=== PATIENT | female | born 1985 | race Caucasian/White ===

== ENCOUNTER 2022-10-17 10:00 | Emergency (ER) | payer MEDICARE, MEDICAID, SELFPAY ==
[2022-10-17 10:04] VITALS: PULSE 140; RESP 20; TEMP 36.8; O2SAT 98; BMI 27.4
--- NOTE | 2022-10-17 10:12 | ED.GENADUL1 ---
HPI - General Adult General Stated complaint: FACIAL INJURY FALL Time Seen by Provider: 10/17/22 10:12 Source: caregiver Source information: Caregiver Mode of arrival: walk-in Limitations: other Limitations comment: Pt is MR History of Present Illness HPI narrative: Patient brought into the emergency department with a complaint of left cheek swelling. Patient has Down syndrome and is here with caregiver. Caregiver states the patient fell 2 weeks ago and had an abrasion to the left cheek. She was not evaluated at that time. They have been caring for the abrasion that she sustained to her cheek however it started getting swollen and red so they brought her in for evaluation. Patient does not have any loose dentition. Does not have any pain. She does not have difficulty swallowing. She does not have any fever. She has been eating and drinking well. They have not noted any drainage. Related Data Previous Rx's Medication Instructions Recorded amoxicillin 875 mg-potassium 1 tab PO Q12H #20 tabs 10/17/22 clavulanate 125 mg tablet mupirocin 2 % topical ointment 1 applic topical TID #15 grams 10/17/22 Allergies Allergy/AdvReac Type Severity Reaction Status Date / Time No Known Drug Allergies Allergy Verified 10/17/22 10:10 Review of Systems ROS Status of ROS 10 or more systems reviewed and unremarkable except as noted in history and below Exam Narrative Exam Narrative: Nurses notes and vital signs reviewed and patient is not hypoxic. General: Nontoxic, MR and in no apparent distress. Skin: Warm, dry, no pallor noted. No Rash Head: Normocephalic, atraumatic. Neck: Supple, non-tender. Eye: Pupils are equal, round and EOMI. No scleral icterus. Ears, Nose, Mouth, and Throat: TM clear, no posterior oropharynx erythema or nasal mucosal hypertrophy, uvula is mid-line Oral mucosa is moist, No loose dentition. There is no intraoral lacerations appreciated. Left cheek has a medical size abrasion with erythema and a small amount of ecchymosis noted. This is not over the bony areas. This only the soft tissues are affected. The intraoral mucosa and intraoral cavity is not affected. No trismus, no tongue elevation. Consistent with an infected wound. Cardiovascular: Regular Rate and Rhythm without murmur, gallop or rub. Respiratory: No accessory muscle use or respiratory distress. Lungs are clear to auscultation, no wheezing, rales or rhonchi Chest Wall: no tenderness Back: No midline thoracic or lumbar vertebral tenderness. No CVA tenderness Musculoskeletal: normal ROM, no calf or popliteal tenderness, no lower extremity edema/swelling GI: Abdomen is soft, non-distended. Normal bowel sounds. No masses appreciated. No tenderness to palpation. No rebound, guarding, or rigidity noted. Neurological: A&O x3. No cranial nerve dysfunction observed. Moves all extremities. Constitutional Vital Signs - 24 hr 10/17/22 10:04 Temperature 98.3 F Pulse Rate [Monitor] 140 H Respiratory Rate 20 Pulse Oximetry 98 Oxygen Delivery Method Room Air Course Vital Signs Vital signs: Vital Signs Temperature 98.3 F 10/17/22 10:04 Pulse Rate 140 H 10/17/22 10:04 Respiratory Rate 20 10/17/22 10:04 Pulse Oximetry 98 10/17/22 10:04 Oxygen Delivery Method Room Air 10/17/22 10:04 Temperature 98.3 F 10/17/22 10:04 Pulse Rate 140 H 10/17/22 10:04 Respiratory Rate 20 10/17/22 10:04 Pulse Oximetry 98 10/17/22 10:04 Oxygen Delivery Method Room Air 10/17/22 10:04 Medical Decision Making MDM Narrative Medical decision making narrative: Patient is aggressive and feisty. However she did cooperate during the exam. She states still Decided to Her Was Going to Give Her Medication for Her Wound. Stated Not to Let the Patient Now Will Requiring to Do an Injection. She Will Be Given an Injection of Rocephin IM, We Discussed compresses to the area, mupirocin, advised that he might drain. The patient is not a candidate for incision and drainage. At this time. They will continue to monitor it. Will follow up with primary care doctor and return to the emergency department if it worsens.Patient given a prescription for Augmentin and mupirocin. At this time the patient is without objective evidence of an acute process requiring hospitalization or inpatient management. The patient has remained hemodynamically stable. No additional indication for emergent studies at this time. I answered all questions. Discussed discharge instructions including standard anticipatory guidance and what should prompt a return to the emergency department, including if they get worse are not getting better or develops any new or concerning symptoms. I've given them specific time frame in which to follow-up, and who to follow-up with. The patient demonstrates understanding. Patient is nontoxic and stable for discharge with outpatient follow-up. This note was created with the assistance of a speech recognition program. Although the intention is to generate documents that actually reflects the content of the visit, no guarantees can be provided that every mistake has been identified and corrected by editing. Discharge Plan Discharge Clinical Impression: Cellulitis and abscess of face, Abrasion of face Patient Disposition: Home, Self-Care Time of Disposition Decision: 10:25 Condition: Good Mode of Transportation: Private Vehicle Prescriptions / Home Meds: New amoxicillin-pot clavulanate 875-125 mg tablet 1 tab PO Q12H Qty: 20 0RF mupirocin 2 % ointment 1 applic topical TID Qty: 15 0RF Instructions: Cellulitis (ED) Additional Instructions: Warm compresses to the face as discussed. Take the medication as discussed. Follow up with the primary care doctor in the morning for reevaluation. Return to the emergency department and plans conceerns as discussed. Stand Alone Forms: Portal Instructions Referrals: Anca VALE [Primary Care Provider] - 1 week
== END 2022-10-17 11:27 | disposition home or self-care (01) ==
PROVIDERS: Emergency Provider Emergency Medicine; PCP Family Medicine
DX: S00.81XA Abrasion of other part of head, initial encounter (principal); L03.211 Cellulitis of face; W19.XXXA Unspecified fall, initial encounter; Q90.9 Down syndrome, unspecified
CPT/HCPCS: 96374; 99284

== ENCOUNTER 2023-08-21 12:16 | Emergency (ER) | payer MEDICARE, MEDICAID, SELFPAY ==
[2023-08-21 12:25] VITALS: BP 127/96; PULSE 80; O2SAT 98
[2023-08-21] MEDS: FLUORESCEIN SODIUM 1 MG STRIP OP (12:43)
--- NOTE | 2023-08-21 13:06 | ED_ITS ---
HPI - Eye Problem General Chief complaint: Eye Problems Stated complaint: EYE PROBLEM, RIGHT Time Seen by Provider: 08/21/23 12:23 Source: other Source comment: EMS Mode of arrival: ambulance History of Present Illness HPI Narrative: 37-year-old female presents from [facility] for eye problem. She has Down syndrome and is unable to provide any history. All of the history is obtained from caregiver. He reports that over the past 1 or 2 days she seemed to have some redness in her right eye and it looked a bit cloudy. This is not normal for her. There is no history of any trauma or foreign body. There has been no purulent drainage. Related Data Previous Rx's ?Medication ?Instructions ?Recorded amoxicillin 875 mg-potassium 1 tab PO Q12H #20 tabs 10/17/22 clavulanate 125 mg tablet mupirocin 2 % topical ointment 1 applic topical TID #15 grams 10/17/22 erythromycin 5 mg/gram (0.5 %) eye 1 applic ophthalmic (eye) TID #3.5 08/21/23 ointment grams Allergies Allergy/AdvReac Type Severity Reaction Status Date / Time No Known Drug Allergies Allergy Verified 10/17/22 10:10 Review of Systems ROS Narrative Unobtainable, Down syndrome Exam Narrative Exam Narrative: Nurses note and vital signs reviewed and patient is not hypoxic. General: The patient appears well and in no apparent distress. Patient is resting comfortably on cart. Skin: Warm, dry, no pallor noted. There is no rash noted. Head: Normocephalic, atraumatic Eye: Left eye is mildly more injected than the right. There is no periorbital swelling or erythema. Extraocular movements appear to be intact. There is cloudiness to the right eye centered on the cornea. Staining and Chavez lamp examination of the left eye shows no abnormalities but there is round uptake at the right cornea. Ears, Nose, Mouth, and Throat: oral mucosa is moist. Nares patent. Cardiovascular: Regular Rate and Rhythm Respiratory: Patient is in no distress, no accessory muscle use, lungs are clear to auscultation, no wheezing, rales or rhonchi Back: non-tender GI: Soft and nontender Musculoskeletal: The patient has no evidence of calf tenderness, no pitting edema, symmetrical pulses noted bilaterally Neurological: Awake and looking around the room Psychiatric: Moderately cooperative Constitutional Vital Signs, click to edit/add: Last Vital Signs Pulse 80 08/21/23 12:25 Resp 18 08/21/23 12:25 BP 127/96 H 08/21/23 12:25 Pulse Ox 98 08/21/23 12:25 O2 Del Method Room Air 08/21/23 12:25 Course Vital Signs Vital signs: Vital Signs Pulse Rate 80 08/21/23 12:25 Respiratory Rate 18 08/21/23 12:25 Blood Pressure 127/96 H 08/21/23 12:25 Pulse Oximetry 98 08/21/23 12:25 Oxygen Delivery Method Room Air 08/21/23 12:25 Pulse Rate 80 08/21/23 12:25 Respiratory Rate 18 08/21/23 12:25 Blood Pressure 127/96 H 08/21/23 12:25 Pulse Oximetry 98 08/21/23 12:25 Oxygen Delivery Method Room Air 08/21/23 12:25 MDM - Eye Problem MDM Narrative Medical decision making narrative: My concern is for corneal ulcer and she is being referred to ophthalmology for appropriate prompt follow-up. Differential Diagnosis Differential diagnosis: Likely corneal abrasion, conjunctivitis, acute iritis and corneal ulcer Discharge Plan Discharge Stand Alone Forms: Portal Instructions Chief Complaint: Eye Problems Clinical Impression: Corneal ulcer Patient Disposition: Home, Self-Care Time of Disposition Decision: 13:04 Condition: Good Mode of Transportation: Private Vehicle Prescriptions / Home Meds: New erythromycin 5 mg/gram (0.5 %) ointment 1 applic ophthalmic (eye) TID Qty: 3.5 0RF Rx Instructions: Each eye No Action amoxicillin-pot clavulanate 875-125 mg tablet 1 tab PO Q12H Qty: 20 0RF mupirocin 2 % ointment 1 applic topical TID Qty: 15 0RF Print Language: Frisian Instructions: Corneal Ulcer (ED) Additional Instructions: Follow-up with ophthalmology Referrals: Anca VALE [Primary Care Provider] - 1 week
== END 2023-08-21 14:22 | disposition home or self-care (01) ==
PROVIDERS: Emergency Provider Emergency Medicine; PCP Family Medicine
DX: H16.002 Unspecified corneal ulcer, left eye (principal); Q90.9 Down syndrome, unspecified
CPT/HCPCS: 99283

== ENCOUNTER 2025-05-06 10:17 | Emergency (ER) | payer MEDICARE, MEDICAID, SELFPAY ==
--- OUTSIDE RECORDS SUMMARY | 2025-04-24 08:58 | XMS_ITS | Encounter Summary ---
Author Organization [facility] Address [address] [place] [address], [address] [place] [address] Care Team Providers Care Business Coordinator Name Role Phone Kyrie Mason DO Primary Care Provider [phone] Encounter Details DateTypeDepartmentCare Team (Latest Contact Info)Iulkbwlqjnq92/18/2025 8:58 AM EST - 04/24/2025 11:59 PM ESTHospital Encounter [place] [id number] Discharge Disposition: Home or Self Care Social History Tobacco UseTypesPacks/DayYears UsedDateSmoking Tobacco: NeverAlcohol UseStandard Drinks/WeekCommentsNo0 (1 standard drink = 0.6 oz pure alcohol)Comments UnknownSex and Gender InformationValueDate RecordedSex Assigned at BirthNot on fileLegal KshQjtrjn70/12/2013 12:28 AM ESTGender IdentityNot on fileSexual OrientationNot on filedocumented as of this encounter Medications at Time of Discharge MedicationSigDispense QuantityRefillsLast FilledStart DateEnd Date ovpfsucicv-zdehpxbieigzg-ozuolaqx (FIORICET, ESGIC) 50-325-40 MG per tablet Take 1 tablet by mouth every 4 hours as needed for Headaches gabapentin (NEURONTIN) 100 MG capsule Take 100 mg by mouth 3 times daily OLANZapine (ZYPREXA) 10 MG tablet Take 10 mg by mouth nightly traZODone (DESYREL) 100 MG tablet Take 100 mg by mouth nightly levothyroxine (SYNTHROID) 112 MCG tablet Take 112 mcg by mouth Dailydocumented as of this encounter Plan of Treatment Not on file documented as of this encounter Procedures Procedure NamePriorityDate/TimeAssociated DiagnosisCommentsURINALYSIS WITH REFLEX TO QLQIPPJVkmxfuo55/18/2025 8:10 AM EST MICROSCOPIC UWKCBZISCKVrgiewz97/18/2025 8:10 AM EST documented in this encounter Results * (ABNORMAL) Microscopic Urinalysis (04/24/2025 8:10 AM EST)ComponentValueRef RangeTest MethodAnalysis TimePerformed AtPathologist SignatureWBC, UANone0 - 5 /HPF04/24/2025 8:10 AM [facility] LABRBC, UANone0 - 2 /HPF04/24/2025 8:10 AM [facility] LABEpithelial Cells, UA 0 TO 20 - 25 /HPF04/24/2025 8:10 AM [facility] Bacteria, UA1+(A)None04/24/2025 8:10 AM [facility] Specimen (Source)Anatomical Location / LateralityCollection Method / Volume Collection TimeReceived Time04/24/2025 8:10 AM EST04/24/2025 9:06 AM EST Narrative Authorizing ProviderResult TypeResult StatusTammalistair Saul APRNURINE ORDERABLES Final ResultPerforming OrganizationAddressCity/State/ZIP CodePhone Number [facility] [address] [place] [address], [facility] [phone] * Urinalysis with Reflex to Culture (04/24/2025 8:10 AM EST)ComponentValueRef RangeTest MethodAnalysis TimePerformed AtPathologist SignatureColor, UAYellow Vviujh9904/24/2025 8:10 AM [facility] LABTurbidity UAClear Clear04/24/2025 8:10 AM [facility] LABGlucose, UrNEGATIVE NEGATIVE mg/dL04/24/2025 8:10 AM [facility] LABBilirubin, WfdqrCWXQQFSEQAZFOMLO97/18/2025 8:10 AM [facility] Ketones, UrineNEGATIVENEGATIVE mg/dL04/24/2025 8:10 AM [facility] [place] LABSpecific [place], UA1.0151.010 - 1.5262804/24/2025 8:10 AM [facility] LABUrine JxnOTNPJJRSYWIZNEFV87/18/2025 8:10 AM [facility] LABpH, Urine6.05.0 - 9.012 8:10 AM [facility] LABProtein, UANEGATIVENEGATIVE mg/dL04/24/2025 8:10 AM [facility] LABUrobilinogen, UrineNormal0.0 - 1.0 EU/dL 04/24/2025 8:10 AM [facility] LABNitrite, UrineNEGATIVE GMNIKVHP82/18/2025 8:10 AM [facility] LABLeukocyte Esterase, LqjmeCBTFAFYEEIRSRYDP88/18/2025 8:10 AM [facility] LABSpecimen (Source)Anatomical Location / LateralityCollection Method / VolumeCollection TimeReceived Time04/24/2025 8:10 AM EST04/24/2025 9:06 AM EST Narrative Authorizing ProviderResult TypeResult StatusTammalistair Saul APRNURINE ORDERABLES Final ResultPerforming OrganizationAddressCity/State/ZIP CodePhone Number [facility] [address] [phone] documented in this encounter Visit Diagnoses Not on filedocumented in this encounter Care Teams Team MemberRelationshipSpecialtyStart DateEnd Date Kyrie Mason DO [address] [place] [address] PCP - GeneralFamily Medicine08/23/23documented as of this encounter
[2025-05-06 10:19] VITALS: BP 145/80; PULSE 125; TEMP 38; O2SAT 95
[2025-05-06 10:47] LABS: SARS-CoV-2 Ag NEGATIVE (NEGATIVE)
--- NOTE | 2025-05-06 10:49 | XR_ITS ---
The [address] [address] Patient Name: THOMAS THOMAS MRN: [id number] date: 1985 Sex: F Assigned Patient Location: ED.MAIN Current Patient Location: ED.MAIN Accession/Order Number: [id number] Exam Date: 05/06/2025 11:00 Report Date: 05/06/2025 11:21 At the request of: INES CUETO MD Procedure: XR chest 1V PORTABLE AP ERECT CHEST 1048 hours CLINICAL HISTORY: fever COMPARISON: 06/22/2018 There is shallow inspiration. The heart is still mildly prominent though also slightly accentuated. A right-sided arch is possible. Mild interstitial changes are again visualized. There is no developing consolidation. No sizable effusion or pneumothorax is seen. The osseous structures are intact. XR/XR chest 1V IMPRESSION: SHALLOW INSPIRATION. SIMILAR SLIGHT CARDIOMEGALY AND INTERSTITIAL CHANGES. NO DEVELOPING CONSOLIDATION Impression dictated by: Helen Andrade M.D. 05/06/2025 11:21 AM Dictation [facility] Electronically authenticated by: [id number] Y Date: 05/06/2025 11:21
--- OUTSIDE RECORDS SUMMARY | 2025-05-06 10:49 | XMS_ITS | Patient Health Record ---
Author Organization [facility] [employer] Address [address] [place] [address] [place] [address] Care Team Providers Care Fuel Storage Technician Name Role Phone Pierce Bunch Primary Care Provider Ryder Jimenez Unavailable [phone] Reason For Referral No Information Plan Of Treatment No Information Insurance Providers Payer Name Payer Address Payer Phone Subscriber Number Group Number Insured Name Patient Relationship to Insured Coverage Start Date Coverage End Date [facility] [address] [place] [address] [id number] Jose D Richards - patient is the insuredMedicaNorthern [facility] Dpt of Job Fmly [address] [place], [place] [id number], LaurenSelf - patient is the insured
--- OUTSIDE RECORDS SUMMARY | 2025-05-06 10:49 | XMS_ITS | Clinical Summary ---
Author Organization [facility] Address [address] [place] [address], [address] [place] [address] Care Team Providers Care Criminal Records Technician Name Role Phone Kyrie Mason DO Primary Care Provider Allergies No known active allergies Medications MedicationSigDispense QuantityRefillsLast FilledStart DateEnd DateStatus traZODone (DESYREL) 100 MG tablet Take 100 mg by mouth nightlyActive levothyroxine (SYNTHROID) 112 MCG tablet Take 112 mcg by mouth DailyActive xazlctxrcs-fikgaongawjff-jyxsknsi (FIORICET, ESGIC) 50-325-40 MG per tablet Take 1 tablet by mouth every 4 hours as needed for HeadachesActive gabapentin (NEURONTIN) 100 MG capsule Take 100 mg by mouth 3 times dailyActive OLANZapine (ZYPREXA) 10 MG tablet Take 10 mg by mouth nightlyActive Encounters DateTypeDepartmentCare AazrYcghbqnznbe88/18/2025 8:58 AM EST - 04/24/2025 11:59 PM ESTHospital Encounter [place] [id number] Discharge Disposition: Home or Self Care03/05/2025 10:28 AM EDT - 03/05/2025 11:59 PM EDTHospital Encounter [place] [id number] Discharge Disposition: Home or Self Carefrom Last 3 Months Social History Tobacco UseTypesPacks/DayYears UsedDateSmoking Tobacco: NeverAlcohol UseStandard Drinks/WeekCommentsNo0 (1 standard drink = 0.6 oz pure alcohol)Comments UnknownSex and Gender InformationValueDate RecordedSex Assigned at BirthNot on fileLegal FuzOofvhd66/12/2013 12:28 AM ESTGender IdentityNot on fileSexual OrientationNot on file Last Filed Vital Signs Vital SignReadingTime TakenCommentsBlood Prsseqht820/6605 2:24 PM EDT Gnlye41757 2:24 PM NSXIwmwkuraoax92.9 ??C (98.4 ??F)09/19/2016 2:24 PM EDTRespiratory Sliq517909/19/2016 2:24 PM EDTOxygen Trsgspcoyz59%09/19/2016 2:24 PM EDTInhaled Oxygen Concentration--Lludxu74.1 kg (170 lb)05/12/2016 6:11 PM EST Height--Body Mass Index-- Plan of Treatment Health MaintenanceDue DateLast DoneCommentsDepression Ivqqcb3712/02/1998Varicella vaccine (1 of 2 - 13+ 2-dose series)12/03/1999HIV vcrblo3812/02/2001Hepatitis C lwxmud8912/02/2004DTaP/Tdap/Td vaccine (1 - Tdap)2005Hepatitis B vaccine (1 of 3 - 19+ 3-dose series)2005Pap smear12/03/2007Cervical cancer screen 2016HPV (without or with Pap)2016Annual Wellness Visit (Medicare) 04/03/2023Flu vaccine (#1)12/06/2024OVID-19 Vaccine ( - season) 2025Meningococcal (ACWY) vaccineAged Out12/27/2006No longer eligible based on patient's age to complete this topicHPV tjxjzelJmvvevifm52/15/2008, 04/19/2007, 02/15/2007Hepatitis A vaccineAged OutNo longer eligible based on patient's age to complete this topicHib vaccineAged OutNo longer eligible based on patient's age to complete this topicMeningococcal B vaccineAged OutNo longer eligible based on patient's age to complete this topicPneumococcal 0-49 years VaccineAged OutNo longer eligible based on patient's age to complete this topic Polio vaccineAged OutNo longer eligible based on patient's age to complete this topic Procedures Procedure NamePriorityDate/TimeAssociated DiagnosisCommentsMICROSCOPIC VJBNXNFHXJYjlcyhp95/18/2025 8:10 AM EST URINALYSIS WITH REFLEX TO VXRTCGDOdfnfum48/18/2025 8:10 AM EST QLGAAGSDABAifzaao92/29/2025 4:00 PM EDT CULTURE, GNSPWVtqhfpb75/29/2025 4:00 PM EDT from Last 3 Months Results * Urinalysis with Reflex to Culture (04/24/2025 8:10 AM EST)ComponentValueRef RangeTest MethodAnalysis TimePerformed AtPathologist SignatureColor, UAYellow Achlbv6404/24/2025 8:10 AM [facility] LABTurbidity UAClear Clear04/24/2025 8:10 AM [facility] LABGlucose, UrNEGATIVE NEGATIVE mg/dL04/24/2025 8:10 AM [facility] LABBilirubin, BgodoBNDRIWFEKEOMATHI34/18/2025 8:10 AM [facility] Ketones, UrineNEGATIVENEGATIVE mg/dL04/24/2025 8:10 AM [facility] LABSpecific [place], UA1.0151.010 - 1.5325804/24/2025 8:10 AM [facility] LABUrine BjjKRRVZDWZXKEWZJPD68/18/2025 8:10 AM [facility] LABpH, Urine6.05.0 - 9.012 8:10 AM [facility] LABProtein, UANEGATIVENEGATIVE mg/dL04/24/2025 8:10 AM [facility] LABUrobilinogen, UrineNormal0.0 - 1.0 EU/dL 04/24/2025 8:10 AM [facility] LABNitrite, UrineNEGATIVE ZNDWLGRW10/18/2025 8:10 AM [facility] LABLeukocyte Esterase, TugkwDVWJKXTIHYFYTNBN77/18/2025 8:10 AM [facility] LABSpecimen (Source)Anatomical Location / LateralityCollection Method / VolumeCollection TimeReceived Time04/24/2025 8:10 AM EST04/24/2025 9:06 AM EST Narrative Authorizing ProviderResult TypeResult StatusTammy L Dorys APRNURINE ORDERABLES Final ResultPerforming OrganizationAddressCity/State/ZIP CodePhone Number [facility] [address] [place] [address] * (ABNORMAL) Microscopic Urinalysis (04/24/2025 8:10 AM EST)ComponentValueRef RangeTest MethodAnalysis TimePerformed AtPathologist SignatureWBC, UANone0 - 5 /HPF04/24/2025 8:10 AM [facility] LABRBC, UANone0 - 2 /HPF04/24/2025 8:10 AM [facility] LABEpithelial Cells, UA 0 TO 20 - 25 /HPF04/24/2025 8:10 AM [facility] Bacteria, UA1+(A)None04/24/2025 8:10 AM [facility] Specimen (Source)Anatomical Location / LateralityCollection Method / Volume Collection TimeReceived Time04/24/2025 8:10 AM EST04/24/2025 9:06 AM EST Narrative Authorizing ProviderResult TypeResult StatusTammy L Dorys APRNURINE ORDERABLES Final ResultPerforming OrganizationAddressCity/State/ZIP CodePhone Number [facility] [address] [place] [address] * Urinalysis (03/05/2025 4:00 PM EDT)ComponentValueRef RangeTest MethodAnalysis TimePerformed AtPathologist SignatureColor, GPXnyqujGemlkg96/29/2025 4:00 PM [facility] LABTurbidity EYCojaoZjnri93/29/2025 4:00 PM [facility] LABGlucose, UrNEGATIVENEGATIVE mg/dL03/05/2025 4:00 PM [facility] LABBilirubin, UrineNEGATIVENEGATIVE 03/05/2025 4:00 PM [facility] LABKetones, UrineNEGATIVE NEGATIVE mg/dL03/05/2025 4:00 PM [facility] LABSpecific [place], UA1.0101.010 - 1.5108003/05/2025 4:00 PM [facility] LABUrine NocNSRLUYZTYPVRMKVP31/29/2025 4:00 PM [facility] LABpH, Urine7.55.0 - 9.010 4:00 PM [facility] LABProtein, UANEGATIVENEGATIVE mg/dL03/05/2025 4:00 PM [facility] LABUrobilinogen, UrineNormal0.0 - 1.0 EU/dL03/05/2025 4:00 PM [facility] LABNitrite, UrineNEGATIVENEGATIVE 03/05/2025 4:00 PM [facility] LABLeukocyte Esterase, XpankOIKGTRGIGTTJJJOW56/29/2025 4:00 PM [facility] Specimen (Source)Anatomical Location / LateralityCollection Method / Volume Collection TimeReceived Time03/05/2025 4:00 PM EDT1 10:29 AM EDT Narrative Authorizing ProviderResult TypeResult StatusTammalistair Saul APRNURINE ORDERABLES Final ResultPerforming OrganizationAddressCity/State/ZIP CodePhone Number [facility] [address] [phone] * Culture, Urine (03/05/2025 4:00 PM EDT)ComponentValueRef RangeTest Method Analysis TimePerformed AtPathologist SignatureSpecimen Description.VOIDED URINE03/05/2025 4:00 PM EDTMERCY LABORATORIESCultureNO UTWWMO8003/05/2025 4:00 PM EDTMERCY LABORATORIESSpecimen (Source)Anatomical Location / Laterality Collection Method / VolumeCollection TimeReceived TimeUrine tomyhx7203/05/2025 4:00 PM EDT1 10:29 AM EDT Narrative Authorizing ProviderResult TypeResult StatusTammy Beverly TurnerDorys APRNMICROBIOLOGY - GENERAL ORDERABLESFinal ResultPerforming OrganizationAddressCity/State/ZIP Code Phone Number [facility] [address] [place] [address], [facility] [phone] [facility] [address] [place] [address], [facility] [phone] from Last 3 Months Insurance Care Teams Team MemberRelationshipSpecialtyStart DateEnd Date Kyrie Mason DO [address] [place] [address] [facility] - [facility]/23/23
--- OUTSIDE RECORDS SUMMARY | 2025-05-06 10:49 | XMS_ITS | Clinical Summary ---
Author Organization [facility] Address [address] [place] [address] Phone Care Team Providers Care Flatwork Finisher Name Role Phone Unavailable Primary Care Provider Unavailabl e Social History Tobacco UseTypesPacks/DayYears UsedDateSmoking Tobacco: Never Assessed CommentsUnknownSex and Gender InformationValueDate RecordedSex Assigned at Not on fileLegal UshMdtbge21/26/2022 7:03 PM ESTGender IdentityNot on fileSexual OrientationNot on file Plan of Treatment Not on file
--- OUTSIDE RECORDS SUMMARY | 2025-05-06 10:49 | XMS_ITS ---
Author Organization [facility] n Care Team Providers Care Perinatal Technician Name Role Phone Julio C, Itri Unavailable Unavailable nancie whitaker Unavailable Unavailable Allergies and adverse reactions No Known Allergies Care Team Name Role Address Phone Organization Dates Itri Julio C PCP [address] [place], [address], [facility] (Office): : : [facility] 12/18/2020 - 02/24/2021 nancie whitaker [address], [place], [address], [place] (Office): : [facility] 12/18/2020 - 02/24/2021 Immunizations Immunization Status Vaccine Details Vaccine Code CodeSystem Steve e Notes Influenza completed Influenza, split virus, trivalent, injectable, contains preservative expiry: 11/04/2021 Mfg: Seqirus Given 0.5 ml Right Deltoid intramuscularly 141 CVX created date: 02/24/2021 consent date: 02/24/2021 administered date: 02/24/2021 TB 1 Step Mantoux (PPD)completedtuberculin skin test; unspecified formulation lotNumber: [id number] expiry: 05/13/2022 Given 0.1 ml Right Forearm xypgxaslkbsga96IWOumqfpfl date: 12/28/2020 consent date: 12/28/2020 administered date: 12/28/2020TB 1 Step Mantoux (PPD)completedtuberculin skin test; unspecified pdprlysyeqg18MIGajaimfp date: 03/08/2021 administered date: 12/18/20202629HYXV-FEQ-7 (COVID-19)yxohgqdklDYQD-EFH-8 (COVID-19) vaccine, mRNA, spike protein, LNP, preservative free, 100 mcg/0.5mL dose or 50 mcg/0.25mL dose Mfg: Pfizer Step 2 of Multi-step with next step oljbmzir962HRBxahrcsx date: 12/29/2020 administered date: 06/09/20200023VKGR-LZL-0 (COVID-19)jvghgnyqdPYEV-FVF-9 (COVID-19) vaccine, mRNA, spike protein, LNP, preservative free, 100 mcg/0.5mL dose or 50 mcg/0.25mL dose Mfg: Pfizer Step 1 of Multi-step with next step dipbczdw759TASictrnrj date: 12/29/2020 administered date: 05/13/2020OVID-19 [facility] WaioucvicwkfyhukHMNY-VLN-0 (COVID- 19) vaccine, mRNA, spike protein, LNP, preservative free, 30 mcg/0.3mL dose lotNumber: [id number] expiry: 05/07/2021 Mfg: Pfizer Given 0.3 ml Right Deltoid cuxehivkmnjwtcr775NISmucsvsk date: 02/12/2021 consent date: 02/12/2021 administered date: 02/11/2021 Mental Status Section Date Assessment Total Score Description 02/24/2021 BIMS 01 severe cognitiv e impairment CAM 2 Delirium indica nelda PHQ-9 03 minimal depress ion 12/22/2020 BIMS 07 severe cognitiv e impairment CAM 2 Delirium indica nelda PHQ-9 03 minimal depress ion Insurance Providers Coverage Status Coverage Type Relationship to Subscriber Member Identifier Subscriber Identifier Group Identifier Payer Identifier and Other information 2020 Code: 1 Code System OID:[id number]. 3.221.5 Code System Name: Source of Payment Typology (PHDSC) Display: Medicare Translation : Code: [place] Code System: OID:[id number] 0.1.515303. 6.255.1336 Code System Name: Insurance Type Code ([id number]) Display Name: Medicare Part A Code: SELF Code System Name: HL7 RoleCode Code System OID:06.23.840.1 .[id number] Display Name: Self [id number] Root: [id number] Payer Identifier: Root: [id number] Extension: [id number] Payer Name: Medicare [place] Address: [facility] City: [place] State: [place] Country: [facility] Code: 2 Code System OID:[id number]. 3.221.5 Code System Name: Source of Payment Typology (PHDSC) Display: Medicaid Translation : Code: 48 Code System: OID:[id number] 0.1.052108. 6.255.1336 Code System Name: Insurance Type Code ([id number]) Display Name: Medicaid Code: 1 Code System OID:[id number] 0.1.269542. 3.221.5 Code System Name: Source of Payment Typology (PHDSC) Display: Medicare Translation : Code: MB Code System: OID:[id number] 0.1.468264. 6.255.1336 Code System Name: Insurance Type Code ([id number]) Display Name: Medicare Part B Code: 2 Code System OID:[id number] 0.1.957193. 3.221.5 Code System Name: Source of Payment Typology ([facility]) Display: Medicaid Translation : Code: 48 Code System: OID:2.16.84 0.1.348149. 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, SUBSEQUENT ENCOUNTER FOR FRACTURE WITH ROUTINE HEALING 12/21/[address] active 4 ANXIETY DISORDER, UNSPECIFIED 12/18/[address] active 5 CONDUCT DISORDER, UNSPECIFIED 12/18/[address] active 6 DISPLACED COMMINUTED FRACTURE OF SHAFT OF LEFT TIBIA, SUBSEQUENT ENCOUNTER FOR CLOSED FRACTURE WITH ROUTINE HEALING 12/18/[address] active 7 DOWN SYNDROME, UNSPECIFIED 12/18/[address] active 8 HEADACHE, UNSPECIFIED 12/18/[address] active 9 HISTORY OF FALLING 12/18/[address] active 10 HYPOTHYROIDISM, UNSPECIFIED 12/18/[address] active 11 UNSPECIFIED ABNORMALITIES OF GAIT AND MOBILITY 12/18/[address] active 12 UNSPECIFIED LACK OF EXPECTED NORMAL PHYSIOLOGICAL DEVELOPMENT IN CHILDHOOD 12/18/[address] active 13 UNSPECIFIED PSYCHOSIS NOT DUE TO A SUBSTANCE OR KNOWN PHYSIOLOGICAL CONDITION 12/18/[address] active 14 UNSPECIFIED URINARY INCONTINENCE 12/18/[address] active Reason for Referral No Reasons for Referral Entered Social History Social History Observation Description Start Date End Date Code Code System Current Smoking Status Tobacco smoking consumption unknown 423307182 SNOMED CT Sex Assigned At Female 1985 77359-1 LOINC Gender Identity Sexual Orientation Vital Signs Code Code System Vitals Name Values and Units Timing Information 8310-5 LOINC Body Temperature Value=96.9 Units= F 02/24/2021 36094-2 LOINC Pain Level Value=0.0 02/24/2021 9279-1 LOINC Respiratory Rate Value=18.0 Units=/m in 02/23/2021 8462-4 [facility] Blood Pressure-Diastolic Value=74 Un its=mmHg 02/23/2021 8480-6 [facility] Blood Pressure-Systolic Txkqt=224 Un its=mmHg 02/23/2021 8867-4 [facility] Heart rate Lknqy=796.0 Units=/min 02/23/2021 19746-7 [facility] O2 % BldC Oximetry Value=96.0 Units= % 02/23/2021 75140-5 [facility] Weight [place]=952.2 Units=Lbs 04/2021 8302-2 [facility] Height Value=63.0 Units=Inches 12/19/2020
--- OUTSIDE RECORDS SUMMARY | 2025-05-06 10:49 | XMS_ITS | Clinical Summary ---
Author Organization [facility] Address [facility] [id number] Care Team Providers Care Rejected Items Clerk Name Role Phone Unavailable Primary Care Provider Unavailabl e Allergies No known active allergies Medications MedicationSigDispense QuantityRefillsLast FilledStart DateEnd DateStatus traZODone (DESYREL) 100 mg tablet Take 1 tablet by mouth daily at bedtime.01/13/2016Active polyethylene glycol 3350 (MIRALAX, GLYCOLAX) 17 gram packet Take 4 Packets by mouth once daily.Active levothyroxine (SYNTHROID) 100 mcg tablet Take 1 tablet by mouth once daily. 30 tablet Active Active Problems ProblemNoted DateDiagnosed DateUrinary projzwrnlckl95/07/2016Bowel incontinence 01/13/2016Down /07/2016 Immunizations ImmunizationAdministration DatesNext Duehuman papillomavirus (HPV4) vaccine, quadrivalent (GARDASIL)08/21/2007,04/19/2007,02/15/2007meningococcal (MenACWY-D) vaccine, quadrivalent (MENACTRA)12/27/2006 Social History Tobacco UseTypesPacks/DayYears UsedDateSmoking Tobacco: NeverSmokeless Tobacco: NeverAlcohol UseStandard Drinks/WeekCommentsNot Asked0 (1 standard drink = 0.6 oz pure alcohol)CommentsUnknownSex and Gender InformationValueDate RecordedSex Assigned at BirthNot on fileLegal WsaGhprtq28/02/2012 8:58 AM EST Gender IdentityNot on fileSexual OrientationNot on file Last Filed Vital Signs Vital SignReadingTime TakenCommentsBlood Exykrasl49/6409 1:00 PM EDT Mhdcv9334 1:00 PM EDTTemperature--Respiratory Rate--Oxygen Saturation-- Inhaled Oxygen Concentration--Qbpsyg83.2 kg (157 lb)01/13/2016 1:00 PM EDTHeight 152.4 cm (5')01/13/2016 1:00 PM EDTBody Mass Index30.66001/13/2016 1:00 PM EDT Plan of Treatment Health MaintenanceDue DateLast DoneCommentsAnxiety Xchzljiae86/28/2005Depression Endlimxxm16/28/2005HIV Iwcxejycy59/28/2005Hepatitis C Vheehzzyk08/28/2005 DTaP,Tdap,Td Vaccine (1 - Tdap)2005Hepatitis B Vaccine (1 of 3 - 19+ 3- dose series)2005Cervical Cancer Pazyivbmu66/28/2008Covid-19 Vaccine (1 - season)2025Influenza Vaccine (#1)2025HPV VaccineCompleted 08/21/2007, 04/19/2007, 02/15/2007 Insurance
[2025-05-06] MEDS: ACETAMINOPHEN 650 MG RECTAL SUPPOSITORY PR (11:15)
--- NOTE | 2025-05-06 11:36 | ED.GENADUL1 ---
HPI HPI - General Adult General Chief complaint: Fever Stated complaint: FEVER, AGGRESSION Time Seen by Provider: 05/06/25 10:43 Source: other Source information: [facility] staff and EMS Mode of arrival: ambulance History of Present Illness HPI narrative: 39-year-old female presented to the emergency department for fever. It is not clear how long she has had the fever. She is not able to provide any medical history. She has a history of Down syndrome and dementia. Facility reported that she has been somewhat more aggressive than typical. No further history is obtainable. Related Data Home Medications ?Medication ?Instructions ?Recorded ?Confirmed calcium citrate 200 mg PO DAILY 05/06/25 05/06/25 ferrous sulfate 325 mg (65 mg 325 mg PO DAILY 05/06/25 05/06/25 iron) tablet (FeroSul) fluoxetine 20 mg capsule 20 mg PO DAILY 05/06/25 05/06/25 gabapentin 100 mg capsule 100 mg PO QPM 05/06/25 05/06/25 levothyroxine 112 mcg tablet 112 mcg PO DAILY 05/06/25 05/06/25 loratadine 10 mg tablet (Allergy 10 mg PO DAILY 05/06/25 05/06/25 Relief (loratadine)) melatonin 3 mg tablet 3 mg PO QPM 05/06/25 05/06/25 quetiapine 25 mg tablet 25 mg PO DAILY 05/06/25 05/06/25 quetiapine 50 mg tablet 50 mg PO QPM 05/06/25 05/06/25 Previous Rx's ?Medication ?Instructions ?Recorded oseltamivir 75 mg capsule (Tamiflu) 75 mg PO BID 5 days #10 caps 05/06/25 Allergies Allergy/AdvReac Type Severity Reaction Status Date / Time No Known Drug Allergies Allergy Verified 10/17/22 10:10 Review of Systems ROS Narrative Not obtainable, dementia Exam Narrative Exam Narrative: Nurses note and vital signs reviewed General:The patient appears in no acute distress. She is periodically screaming. She is turning her head and looking all the way around the room. Neck is supple. Skin:Warm, dry, no pallor noted.There is no rash noted. Head:Normocephalic, atraumatic Eye: Normal conjunctiva, no drainage Ears, Nose, Mouth, and Throat: oral mucosa is moist. Nares patent. Cardiovascular:Regular Rate and Rhythm Respiratory:Patient is in no distress, no accessory muscle use, lungs are clear to auscultation, no wheezing, rales or rhonchi Back:non-tender GI: Soft and nontender Musculoskeletal: No joint swelling Neurological: Awake and alert Psychiatric: Screaming but when spoken to quietly she calms down and speaks quietly. Constitutional Vital Signs, click to edit/add: Last Vital Signs Temp 100.4 F 05/06/25 10:19 Pulse 125 H 05/06/25 10:19 Resp 22 H 05/06/25 10:19 BP 145/80 H 05/06/25 10:19 Pulse Ox 95 05/06/25 10:19 O2 Del Method Room Air 05/06/25 10:19 Course Vital Signs Vital signs: Vital Signs Temperature 100.4 F 05/06/25 10:19 Pulse Rate 125 H 05/06/25 10:19 Respiratory Rate 22 H 05/06/25 10:19 Blood Pressure 145/80 H 05/06/25 10:19 Pulse Oximetry 95 05/06/25 10:19 Oxygen Delivery Method Room Air 05/06/25 10:19 Temperature 100.4 F 05/06/25 10:19 Pulse Rate 125 H 05/06/25 10:19 Respiratory Rate 22 H 05/06/25 10:19 Blood Pressure 145/80 H 05/06/25 10:19 Pulse Oximetry 95 05/06/25 10:19 Oxygen Delivery Method Room Air 05/06/25 10:19 Medical Decision Making MDM Narrative Medical decision making narrative: Influenza test is positive and she was prescribed Tamiflu. She was given Tylenol suppository here. Chest x-ray is negative. Differential Diagnosis Differential Diagnosis: Influenza, COVID, pneumonia Lab Data Lab results reviewed: Yes I reviewed the patient's lab results Labs: Lab Results 05/06/25 Range/Units 10:31 Influenza Type A Ag Positive A Influenza Type B Ag Negative RSV Antigen Not detected (NOT DETECTE) SARS-CoV-2 Ag (CV2AG) Negative (NEGATIVE) Imaging Data Chest x-ray: Radiologist's impression: ITS Impressions Chest X-Ray 05/06/25 10:49 IMPRESSION: SHALLOW INSPIRATION. SIMILAR SLIGHT CARDIOMEGALY AND INTERSTITIAL CHANGES. NO DEVELOPING CONSOLIDATION Impression dictated by: Helen Andrade M.D. 05/06/2025 11:21 AM Dictation Location: [place] [address] Electronically authenticated by: [id number] Y Date: 05/06/2025 11:21 Discharge Plan Discharge Chief Complaint: Fever Clinical Impression: Influenza Patient Disposition: Home, Self-Care Time of Disposition Decision: 11:34 Condition: Good Mode of Transportation: Private Vehicle Prescriptions / Home Meds: New oseltamivir [Tamiflu] 75 mg capsule 75 mg PO BID 5 Days Qty: 10 0RF No Action calcium citrate 200 mg (950 mg) tablet 200 mg PO DAILY ferrous sulfate [FeroSul] 325 mg (65 mg iron) tablet 325 mg PO DAILY fluoxetine 20 mg capsule 20 mg PO DAILY gabapentin 100 mg capsule 100 mg PO QPM levothyroxine 112 mcg tablet 112 mcg PO DAILY loratadine [Allergy Relief (loratadine)] 10 mg tablet 10 mg PO DAILY melatonin 3 mg tablet 3 mg PO QPM quetiapine 25 mg tablet 25 mg PO DAILY quetiapine 50 mg tablet 50 mg PO QPM Print Language: Yakut Instructions: Influenza (ED) Referrals: Kyrie Mason DO [Primary Care Provider] - 1 week
[2025-05-06 12:19] VITALS: PULSE 110; TEMP 36.9; O2SAT 97
== END 2025-05-06 13:17 | disposition home or self-care (01) ==
PROVIDERS: Emergency Provider Emergency Medicine; PCP Family Medicine
DX: J10.1 Influenza due to other identified influenza virus with other respiratory manifestations (principal); Q90.9 Down syndrome, unspecified; F03.90 Unspecified dementia, unspecified severity, without behavioral disturbance, psychotic disturbance, mood disturbance, and anxiety
CPT/HCPCS: 71045; 87420; 87804; 87811; 99283